=== PATIENT | female | born 1985 | race Two or more races ===

== ENCOUNTER 2019-07-14 20:58 | Emergency (ER) | payer BC, MEDICAID ==
[~2019-07-14] VITALS: Ht 154.9 cm; Wt 18.1 kg
[~2019-07-14 20:58] MED LIST: IBUPROFIN; Q TUSSIN
[2019-07-15 02:53] VITALS: BP 134/75
[2019-07-15] MEDS ORDERED: DexAMETHasone SOD PHOS 10MG/1ML VIAL INJ IM ONE (03:00)
[2019-07-15] MEDS ORDERED: ACYCLOVIR 400 MG TAB PO ONE (03:00)
[2019-07-15] MEDS ORDERED: ACETAMINOPHEN/CODEINE#3 (300/30mg) TAB PO ONE (03:00)
== END 2019-07-15 03:55 | disposition home or self-care (01) ==
LOC: ER 21:00
DX: B02.9 Zoster without complications (principal); Z87.440 Personal history of urinary (tract) infections
CPT/HCPCS: 96372; 99283; J1100

== ENCOUNTER 2024-04-10 07:51 | Inpatient (IN) | payer BC, MEDICAID ==
[~2024-04-10] VITALS: Ht 154.9 cm; Wt 61.5 kg
[2024-04-10 08:39] VITALS: PULSE 68; RESP 16; O2SAT 96
[2024-04-10] MEDS: MECLIZINE HCL 25 MG TAB PO ONE (08:46)
[2024-04-10 09:01] LABS: Basophils # (auto) 0 10 ^3/uL (0-0.2); Basophils % (auto) 0.4 % (0.0-2.0); Eosinophils # (auto) 0.1 10 ^3/uL (0-0.8); Eosinophils % (auto) 1.5 % (0.0-7.0); Hematocrit 37.4 % (36.0-46.0); Hemoglobin 12.8 g/dL (12.2-16.2); Lymphocytes % (auto) 13.2 % (10.0-50.0); Mean Corpuscular Hemoglobin 30.6 pg (28.0-32.0); Mean Corpuscular Hgb Conc. 34.2 g/dL (32.0-36.0); Mean Corpuscular Volume 89.5 fL (80.0-100.0); Monocytes # (auto) 0.5 10 ^3/uL (0-1.3); Neutrophils # (auto) 6.3 10 ^3/uL (1.6-8.6); Neutrophils % (auto) 78.9 % (37.0-80.0); Red Blood Cells 4.18 10^6/uL (4.0-5.20); Red Cell Distribution Width 13.7 % (11.8-14.3); White Blood Cell 7.9 10^3/uL (4.4-10.8)
[2024-04-10 09:08] LABS: Chloride 108 mmol/L (98-107); Potassium 3.9 mmol/L (3.5-5.1); Sodium 141 mmol/L (136-145)
[2024-04-10 09:09] LABS: Anion Gap 7 (5-15); Carbon Dioxide 26 mmol/L (20-30)
[2024-04-10 09:10] LABS: Calcium 9.8 mg/dL (8.7-10.4)
[2024-04-10 09:14] LABS: BUN/Creatinine Ratio 16.4 (10.0-20.0); Blood Urea Nitrogen 10 mg/dL (9-23); Glucose 94 mg/dL (74-106)
[2024-04-10] MEDS ORDERED: MORPHINE SULFATE INJ 2 MG/ml SYRG IV PRN (10:15)
[2024-04-10] MEDS ORDERED: NITROGLYCERIN 0.4 MG SL TAB SL PRN (10:15)
[2024-04-10] MEDS: SODIUM CHLORIDE 0.9% 1,000 ML IV SCH (10:43)
[2024-04-10 12:51] LABS: Urine Bacteria None Seen /hpf (None Seen)
[2024-04-10 13:17] LABS: Urine Blood Negative /uL (Negative); Urine Clarity Clear (Clear); Urine Color Light-Yellow (Yellow); Urine Protein, UAD Negative (Negative); Urine Specific Gravity 1.008 (1.001-1.035); Urine Urobilinogen Normal (Negative); Urine WBC 19 /hpf (0 - 5)
[2024-04-10] MEDS: DOCUSATE SOD 100 MG CAP PO PRN (14:54)
[2024-04-10] MEDS: MECLIZINE HCL 25 MG TAB PO SCH (14:55)
[2024-04-10] MEDS: MORPHINE SULFATE INJ 2 MG/ml SYRG IV PRN (14:55)
[2024-04-10] MEDS: ONDANSETRON HCL 4 MG/2 ML VIAL IV PRN (14:56)
[2024-04-10 21:00] VITALS: BP 129/76; PULSE 79; RESP 20; TEMP 97.9; O2SAT 96
[2024-04-10 22:16] VITALS: PULSE 79; RESP 20; O2SAT 96
[2024-04-11 01:00] VITALS: BP 118/80; PULSE 80; RESP 22; TEMP 97.8; O2SAT 98
[2024-04-11 05:00] VITALS: BP 111/70; PULSE 66; RESP 22; TEMP 98.1; O2SAT 97
[2024-04-11 06:33] LABS: Basophils # (auto) 0 10 ^3/uL (0-0.2); Basophils % (auto) 0.4 % (0.0-2.0); Eosinophils # (auto) 0.3 10 ^3/uL (0-0.8); Eosinophils % (auto) 3.7 % (0.0-7.0); Hemoglobin 11.7 g/dL (12.2-16.2); Lymphocytes # (auto) 1.7 10 ^3/uL (0.4-5.4); Lymphocytes % (auto) 25.7 % (10.0-50.0); Mean Corpuscular Hemoglobin 30.6 pg (28.0-32.0); Mean Corpuscular Hgb Conc. 34.4 g/dL (32.0-36.0); Mean Corpuscular Volume 89.2 fL (80.0-100.0); Monocytes # (auto) 0.5 10 ^3/uL (0-1.3); Monocytes % (auto) 7.5 % (0.0-12.0); Neutrophils # (auto) 4.3 10 ^3/uL (1.6-8.6); Neutrophils % (auto) 62.7 % (37.0-80.0); Nucleated Red Blood Cells % 0.1 %; Red Blood Cells 3.81 10^6/uL (4.0-5.20); Red Cell Distribution Width 13.7 % (11.8-14.3); White Blood Cell 6.8 10^3/uL (4.4-10.8)
[2024-04-11 06:42] LABS: Alanine Aminotransferase 16 U/L (7-40); Albumin 3.6 g/dL (3.2-4.8); Alkaline Phosphatase 70 U/L (46-116); Anion Gap 8 (5-15); Aspartate Aminotransferase 11 U/L (13-40); BUN/Creatinine Ratio 16.9 (10.0-20.0); Bilirubin, Total 0.8 mg/dL (0.2-1.0); Blood Urea Nitrogen 10 mg/dL (9-23); Calcium 8.5 mg/dL (8.7-10.4); Carbon Dioxide 23 mmol/L (20-30); Chloride 111 mmol/L (98-107); Glucose 90 mg/dL (74-106); Potassium 4.2 mmol/L (3.5-5.1); Sodium 142 mmol/L (136-145); Total Protein 5.9 g/dL (5.7-8.2)
[2024-04-11 08:00] VITALS: PULSE 78; RESP 16; O2SAT 97
[2024-04-11 09:00] VITALS: BP 117/75; PULSE 78; RESP 16; TEMP 98.7; O2SAT 97
[2024-04-11 13:00] VITALS: BP 110/76; PULSE 84; RESP 17; TEMP 98.6; O2SAT 96
== END 2024-04-11 15:50 | disposition left against medical advice (07) | DRG 74 ==
LOC: ER 07:51 → OVERFLOW 10:05 → WEST WING 20:02
PROVIDERS: ADMIT Nurse Practitioner Family; ATTEND Internal Medicine
DX: G90.9 Disorder of the autonomic nervous system, unspecified (principal); Z53.29 Procedure and treatment not carried out because of patient's decision for other reasons; Z87.442 Personal history of urinary calculi
CPT/HCPCS: 36415; 70450; 80048; 80053; 81001; 81025; 84443; 85025; G0378; J2405